=== PATIENT | female | born 1990 | race Hispanic/Latino ===

== ENCOUNTER 2018-01-18 20:09 | Emergency (ER) | payer SELFPAY ==
[~2018-01-18] VITALS: Ht 149.9 cm; Wt 56.7 kg
[2018-01-18] MEDS ORDERED: CIPRO500 MG PO (20:23)
[2018-01-18] MEDS ORDERED: DICYCLOMINE HCL10 MG PO (20:23)
== END 2018-01-18 20:46 | disposition left against medical advice (07) ==
LOC: ER 20:09
DX: R19.7 Diarrhea, unspecified (principal)